=== PATIENT | female | born 1950 | race Caucasian/White ===

== ENCOUNTER 2019-02-12 20:54 | Inpatient (IN) | payer MEDICARE ==
[2019-02-12] MEDS ORDERED: Iohexol 350* (CONTRAST) 500 ML MDV IV ONE (21:36)
--- NOTE | 2019-02-12 22:28 | ED ---
Neurological HPI - HPI Summary HPI Summary: Patient is a 69 y/o F presenting to [facility] via EMS from [facility] for CLARK and impaired speech which the patient characterizes as difficulty finding words. She states that CLARK onset this morning, 02/12/19, when she returned home from walking her dog. Patient drank fluids and took ASA with no relief in Sx. CLARK progressively worsened. She subsequently had difficulty finding her words. Patient went to [facility] for stroke workup. She was noted to be hypertensive as well. Patient's case was discussed with Dr. Vernon who recommended transfer of patient to [facility] for MRI and CTA. Currently, CLARK is "just about gone" but some difficulty with word finding is still noted. Some nausea is endorsed, but she notes that she has not eaten since 1000, 02/12/19. Tingling /numbness/weakness, vomiting, diarrhea, fever, chest pain, abdominal pain, visual changes are denied. Patient reports some recent family stress. Patient is on metoprolol, lovastatin, and a third medication which she cannot recall at this time. She states that she has never smoked, drinks alcohol rarely, and denies substance usage. PSHx of hysterectomy is noted. FMHx of HTN, diabetes and cardiac disease is noted. Allergy to Flagyl and Penicillin is reported. Patient also claims that she had a reaction to contrast dye in 1991, claiming that she became hot, developed a rash, and felt near-syncopal when it was administered. - History of Current Complaint Chief Complaint: EDHypertension Stated Complaint: STROKE LIKE SYMPTOMS PER EMS Time Seen by Provider: 02/12/19 21:05 Hx Obtained From: Patient Onset/Duration: Started hours ago, Still Present Timing: Constant Current Severity: Mild Pain Intensity: 4 Pain Scale Used: 0-10 Numeric Character: Impaired Speech, Other: - CLARK Associated Signs and Symptoms: Positive: Headache, Impaired Speech - Allergy/Home Medications Allergies/Adverse Reactions: Allergies Allergy/AdvReac Type Severity Reaction Status Date / Time No Known Allergies Allergy Verified 02/13/19 00:15 Home Medications: Home Medications Lovastatin (NF) [Mevacor (NF)] 40 mg PO DAILY 02/12/19 [History Confirmed ] Metoprolol/HCTZ 50/25 (NF) [Metoprolol/Hydrochlorothi] 1 tab PO DAILY 02/12/19 [ History Confirmed 02/12/19] metFORMIN* [Glucophage 500 MG TAB *] 500 mg PO BID 02/12/19 [History Confirmed 02/12/19] PMH/Surg Hx/FS Hx/Imm Hx Endocrine/Hematology History: Denies: Hx Diabetes Cardiovascular History: Denies: Hx Pacemaker/ICD History: Denies: Hx Renal Disease Sensory History: Denies: Hx Hearing Aid Psychiatric History: Denies: Hx Panic Disorder - Surgical History Surgery Procedure, Year, and Place: HYSTERECTOMY; FACIAL & ARM FX REPAIR FROM 30 YRS AGO Infectious Disease History: No Infectious Disease History: Denies: Traveled Outside the [place] in Last 30 Days - Family History Known Family History: Positive: Cardiac Disease, Hypertension, Diabetes - Social History Alcohol Use: Rare Substance Use Type: Reports: None Smoking Status (MU): Never Smoked Tobacco Review of Systems - ROS Summary Review of Systems Summary: Home Medications Medication Instructions Recorded Confirmed Type Lovastatin (NF) [Mevacor (NF)] 40 mg PO DAILY 02/12/19 02/12/19 History Metoprolol/HCTZ 50/25 (NF) 1 tab PO DAILY 02/12/19 02/12/19 History [Metoprolol/Hydrochlorothi] metFORMIN* [Glucophage 500 MG TAB 500 mg PO BID 02/12/19 02/12/19 History *] Negative: Fever Eyes: Other - negative - visual changes Negative: Chest Pain Positive: Nausea. Negative: Abdominal Pain, Vomiting, Diarrhea Neurological: Other - positive - impaired speech Positive: Headache. Negative: Weakness, Paresthesia, Numbness All Other Systems Reviewed And Are Negative: Yes Physical Exam - Summary Physical Exam Summary: General: Well-developed, Well-nourished female. No acute distress. HEENT: Normocephalic, Atraumatic. Eyes: Conjuctiva normal, PERRL. Ears: TMs within normal limits. Nares: (-) discharge, (-) erythema. Oropharynx: Clear, mucous membranes moist, (-) exudates. Neck: Soft, FROM, (-) lymphadenopathy, (-) thyromegaly, (-) JVD. Cardiovascular: Normal sinus rhythm, (-) murmur. Lungs: Clear to auscultation bilaterally (-) wheezes, (-) rales, (-) rhonchi. Abdomen: Soft, non-tender, non-distended, (-) organomegaly, normal bowel sounds. Back: (-) CVA tenderness Extremities: No edema. Skin: Warm, dry, (-) rash. Neuro: Alert and oriented x3, no focal deficits. GCS 15. NIH 0. Psychiatric: Mood normal, affect normal. Triage Information Reviewed: Yes Vital Signs On Initial Exam: Initial Vitals Temp Pulse Resp BP Pulse Ox 98.7 F 78 16 215/108 95 02/12/19 20:55 02/12/19 20:55 02/12/19 20:55 02/12/19 20:55 02/12/19 20:55 Vital Signs Reviewed: Yes - [place] Coma Scale Best Eye Response: 4 - Spontaneous Best Motor Response: 6 - Obeys Commands Best Verbal Response: 5 - Oriented Coma Scale Total: 15 Procedures - Sedation Patient Received Moderate/Deep Sedation with Procedure: No Diagnostics - Vital Signs Vital Signs Temp Pulse Resp BP Pulse Ox 02/12/19 21:19 16 190/100 97 02/12/19 21:15 89 16 193/106 97 02/12/19 20:55 98.7 F 78 16 215/108 95 - Laboratory Lab Statement: Any lab studies that have been ordered have been reviewed, and results considered in the medical decision making process. - Radiology MRI BRAIN Radiology Interpretation Completed By: Radiologist Summary of Radiographic Findings: MRI BRAIN IMPRESSION: Area of restricted diffusion which shows increased signal on the flair weighted. sequences. This is in the region of the corpus callosum and cingulate gyrus. This could represent an ischemic lesion. However this is in an unusual. territory for ischemia and does raise the question of a demyelinating process. This is coupled to oval lesions which are oriented perpendicular to the. ependymal surface of the lateral ventricles. No lesions within the brainstem or. cerebellum. This raises the possibility of a demyelinating process. Cannot. exclude an ischemic process such as a microvascular leukoencephalopathy with a. subacute lacunar infarct. There is a broad differential for these white matter. lesions ranging from infectious lesions like Lyme's disease, inflammatory. processes such as sarcoid and vascular lesions like a vasculitis. This is only. a partial list. THIS REPORT WAS REVIEWED BY DR. LOWRY. - CT CTA HEAD/NECK CT Interpretation Completed By: Radiologist Summary of CT Findings: CTA HEAD IMPRESSION: Calcification of the delatorre of both carotid siphons. No aneurysm. The. intracranial circulation shows no stenosis. No aneurysm. No occlusion. THIS REPORT WAS REVIEWED BY DR. LOWRY. CTA NECK IMPRESSION: No acute findings. THIS REPORT WAS REVIEWED BY DR. LOWRY NIH Scale - NIH Scale Level of Consciousness: Alert/Keenly Responsive Ask Patient the Month and His/Her Age: Both Correct Ask Pt to Open/Close Eyes and Kitchen Cleaner/Release Non-Paretic Hand: Both Correctly Best Gaze (Only Horizontal Eye Movement): Normal Visual Field Testing: No Visual Loss Facial Paresis-Pt to Smile & Close Eyes or Grimace Symmetry: Normal/Symmetrical Motor Function - Right Arm: No Drift-Holds 10 Seconds Motor Function - Left Arm: No Drift-Holds 10 Seconds Motor Function - Right Leg: No Drift-Holds 10 Seconds Motor Function - Left Leg: No Drift-Holds 10 Seconds Limb Ataxia-Must be out of Proportion to Weakness Present: Absent Sensory (Use Pinprick to Test Arms/Legs/Trunk/Face): Normal Best Language (Describe Picture, Name Items): No Aphasia Dysarthria (Read Several Words): Normal Extinction and Inattention: No Abnormality Total Score: 0 Course/Dx - Course Course Of Treatment: 69 year old female sent here from [facility] with severe headache and difficulty finding works. possible tia vs complicated migraine. sent here for further imaging studies. no stroke findings noted on cta head/neck. Mri brain. patient referred to hospitalist for admission and neuro consult. patient discussed with Dr Quinteros. he accepted the patient in transfer for further testing. admit to medicine, neuro consult in am. During ED course, patient received solu-medrol 40 mg IV, trandate 20 mg IV, Benadryl 50 mg IV, and ASA 324 PO. - Diagnoses Provider Diagnoses: Headache, Hypertensive urgency - Physician Notifications Discussed Care Of Patient With: Merry Roach Time Discussed With Above Provider: 23:36 Instructed by Provider To: Other - Patient's case was discussed with Dr. Roach , Dr. Roach accepts for admission. Discharge ED - Sign-Out/Discharge Documenting (check all that apply): Patient Departure - admit All imaging exams completed and their final reports reviewed: Yes - Discharge Plan Condition: Stable Disposition: ADMITTED TO [facility] - Billing Disposition and Condition Condition: STABLE Disposition: Admitted to [facility] - Attestation Statements Document Initiated by Scribe: Yes Documenting Scribe: GERRY ARAUJO Provider For Whom Scribe is Documenting (Include Credential): SUSHILA LOWRY MD Scribe Attestation: I, GERRY ARAUJO, scribed for SUSHILA LOWRY MD on 02/13/19 at 0225. Scribe Documentation Reviewed: Yes Provider Attestation: The documentation as recorded by the scribeGERRY accurately reflects the service I personally performed and the decisions made by me, SUSHILA LOWRY MD Status of Scribe Document: Viewed
[2019-02-12] MEDS ORDERED: diPHENhydraMINE IV* 50 MG/ML 1 ml VIAL (BENADRYL) IV ONE (22:34)
[2019-02-12] MEDS ORDERED: methylPREDNISolone SOD 40 MG* 1 ML VIAL IV ONE (22:35)
[2019-02-12] MEDS ORDERED: Labetalol IV* 5 MG/ML 20 ML VIAL IV PUSH ONE (22:36)
[2019-02-12] MEDS ORDERED: Aspirin 81 mg CHEW TAB* 81 MG TAB.CHEW PO ONE (23:17)
[2019-02-13] MEDS ORDERED: niCARdipine 0.1MG/ML IVPREMIX* 20 MG/200 ML BAG IV SCH ×2 (01:00)
[2019-02-13 05:03] LABS: Hematocrit 40 % (35-47); Hemoglobin 14.2 g/dL (12.0-16.0); Mean Corpuscular HGB Conc 36 g/dL (31-36); Mean Corpuscular Hemoglobin 31 pg (27-31); Mean Corpuscular Volume 86 fL (80-97); Mean Platelet Volume 8.3 fL (7.4-10.4); Platelet Count 212 10^3/uL (150-450); Red Blood Count 4.62 10^6 /uL (3.70-4.87); Red Cell Distribution Width 13 % (10-15); White Blood Count 8.7 10^3/uL (3.5-10.8)
[2019-02-13 05:17] LABS: Albumin 4.1 g/dL (3.2-5.2); Calcium 9.2 mg/dL (8.6-10.3); Magnesium 1.9 mg/dL (1.9-2.7); Potassium 3.6 mmol/L (3.5-5.0); Total Bilirubin 0.5 mg/dL (0.2-1.0)
[2019-02-13 05:21] LABS: Troponin I 0.01 ng/mL (<0.03)
[2019-02-13 05:23] LABS: Albumin/Globulin Ratio 1.4 (1-3); BUN/Creatinine Ratio 13.6 (8-20); EGFR African American 107.8 (>60); EGFR Non-African American 89.1 (>60); Total Protein 7.1 g/dL (6.4-8.9)
[2019-02-13] MEDS: Heparin VIAL(*) 5000 UNITS/ML VIAL (FIVE THOUSAND) SUBCUT SCH ×3 (05:39→21:36)
--- NOTE | 2019-02-13 07:50 | HP ---
History of Present Illness - History of Present Illness Reason for Visit: headache, aphasia History of Present Illness: 69 yo female with hx of HTN was brought in as a transfer from outside facility. She originally presented with BP 240s, severe CLARK and aphasia. Pt transferred here for MRI and CTA. MRI shows a demyelinating process. CTA was neg for stroke. Her neurological symptoms improved and her CLARK resolved. Her systolic is still in the 190s-200s. She has hx of HTN, did not take her meds today. She had an argument with her family this morning and feels overwhelmed. In the ED, she received a dose of steroids. - Past Medical History Cardiac: HTN, Hyperlipidemia Review of Systems - Measurements Intake and Output: Intake and Output Last 24 Hours 02/11/19 02/12/19 02/13/19 02/14/19 06:59 06:59 06:59 06:59 Intake Total 60 Balance 60 Weight 174 lb 9.698 oz Intake: Medicated IV 60 Cardene 60 Other: Estimated Void Large - Review of Systems Constitutional Symptoms: Negative: Weight Gain, Weight Loss, Weakness, Fatigue, Fever, Night Sweats, Unexplained Falls, Other Dermatology: Negative: Normal, Rash, Skin Lesions, Cancer, Skin Lumps, Other HEENT: Negative: Normal, Change in Hearing, Vertigo, Dental Problems, Tinnitus, Sinus Problem, Other Eyes: Negative: Normal, Change in Vision, Double Vision, Eye Pain, Glaucoma, Cataract, Contacts or Glasses, Other Thyroid: Negative: Normal, Goiter, Thyroid Nodule, Cold Intolerance, Heat Intolerance , Sweatiness, Tremor, Frequent Defecation, Constipation, Palpitations, Primary Hypothyroidism, Primary Hyperthyroidism, Weight Loss, Weight Gain, Change in Skin/Hair, Change in Menstruation, Radiation Exposure, Other Pulmonary: Negative: Normal, Cough, Sputum, Hemoptysis, Wheezing, Respiratory Distress, Shortness of Breath, COPD, Asthma, Exercise Intolerance, Home Oxygen, Other Cardiology: Negative: Normal, Chest Pain, Shortness of Breath, Palpitations, Swelling of Ankles, Peripheral Vascular Dis, Edema, Faintness, Syncope, Claudication, Proximal NocturnalDyspnea, Orthopnoea, Other Gastroenterology: Negative: Normal, Abdominal Pain, Nausea, Vomiting, Anorexia, Indigestion, Difficulty Swallowing, Heartburn, Constipation, Diarrhea, Blood in Stools, Change in Bowel Habits, Haematemesis, Melena, Other Endocrinology: Negative: Normal, Thyroid Problems, Adrenal Problems, Gonadal Problems, Family Hx Endocrine Disorders, Obesity, Diabetes Mellitus, Hyperglycemia, Hx Hypoglycemia, Diabetic Foot Ulcers, Calluses, Hirsutism, Menstrual Abnormalities , Polydipsia, Polyuria, Gonadal Problems, Gynecomastia, Pituitary disease, Other Hematologic/Lymphatic: Negative: Anemia, Easy Bruising, Hx Leukemia, Hx Lymphoma, Use of Anticoagulant, Use of Antiplatelet Drugs, Other Neurology: Positive: Normal, Headache Negative: Migraines, Change in Vision, Diplopia, Dizziness, Change in Balancing, Change in Coordination, Change in Memory, Change in Speech, Change in Sphincter Function, Change in Walking, Numbness\Paresthesiae, Unexplained Weakness, Hx of Stroke\TIA, Hx of Seizures, Other Psychiatry: Positive: Normal, Anxiety, Unusual Anxiety Negative: Depression, Depressed Mood, Anhedonia, Sexual Dysfunction, Weight Change, Guilt Feelings, Tearfulness, Unusual Fatigue, Suicidal Ideation, Hypomania, Eating Disorders, Other Objective Active Medications: Heparin Sodium (Porcine) (Heparin Vial(*)) 5,000 units SUBCUT Q8HR [facility] Last Admin: 02/13/19 05:39 Dose: 5,000 units Hydrochlorothiazide (Hydrodiuril Tab*) 25 mg PO DAILY [facility] Nicardipine/Sodium Chloride (Cardene 0.1mg/Ml Ivpremix*) 20 mg in 200 mls @ 0 mls/hr IV .INITIAL RATE [facility]; Protocol Last Admin: 02/13/19 01:03 Dose: 50 mls/hr Influenza Virus Vaccine (Fluarix Quad 4063-2189 Syr) 0.5 ml IM .ONCE ONE Stop: 02/13/19 09:01 Metoprolol Succinate (Toprol Xl Tab*) 1 mg PO DAILY [facility] Vital Signs - 8 hr 02/13/19 02/13/19 02/13/19 00:09 00:14 00:45 Temperature 98.7 F Pulse Rate 81 81 81 Respiratory 16 22 20 Rate Blood Pressure 161/86 172/96 188/97 (mmHg) O2 Sat by Pulse 94 94 96 Oximetry 02/13/19 02/13/19 02/13/19 00:58 01:00 01:15 Temperature 98.4 F Pulse Rate 81 84 85 Respiratory 20 22 Rate Blood Pressure 188/97 176/99 158/76 (mmHg) O2 Sat by Pulse 95 97 94 Oximetry 02/13/19 02/13/19 02/13/19 01:30 01:45 02:00 Temperature Pulse Rate 82 83 84 Respiratory 28 26 25 Rate Blood Pressure 147/75 147/74 145/77 (mmHg) O2 Sat by Pulse 95 95 94 Oximetry 02/13/19 02/13/19 02/13/19 02:15 02:30 02:45 Temperature Pulse Rate 85 82 81 Respiratory 18 21 23 Rate Blood Pressure 154/78 135/63 139/71 (mmHg) O2 Sat by Pulse 94 94 93 Oximetry 02/13/19 02/13/19 02/13/19 02:58 03:00 03:15 Temperature Pulse Rate 80 81 Respiratory 20 19 20 Rate Blood Pressure 133/67 150/72 (mmHg) O2 Sat by Pulse 96 97 Oximetry 02/13/19 02/13/19 02/13/19 03:30 03:45 04:00 Temperature 99.9 F Pulse Rate 77 82 78 Respiratory 16 22 24 Rate Blood Pressure 149/72 152/79 158/73 (mmHg) O2 Sat by Pulse 95 98 92 Oximetry 02/13/19 02/13/19 02/13/19 04:15 04:30 05:00 Temperature Pulse Rate 78 78 75 Respiratory 23 21 16 Rate Blood Pressure 140/72 152/75 (mmHg) O2 Sat by Pulse 92 94 95 Oximetry 02/13/19 02/13/19 02/13/19 05:30 05:45 06:00 Temperature Pulse Rate 76 75 74 Respiratory 17 21 31 Rate Blood Pressure 172/90 157/85 167/79 (mmHg) O2 Sat by Pulse 96 93 96 Oximetry 02/13/19 06:15 Temperature Pulse Rate 73 Respiratory 20 Rate Blood Pressure 150/75 (mmHg) O2 Sat by Pulse 94 Oximetry Oxygen Devices in Use Now: None Appearance: NID, trying to rest Ears/Nose/Mouth/Throat: NL Teeth, Lips, Gums, Mucous Membranes Moist Neck: NL Appearance and Movements; NL JVP, Trachea Midline Respiratory: Symmetrical Chest Expansion and Respiratory Effort, Clear to Auscultation, Clear to Percussion Cardiovascular: NL Sounds; No Murmurs; No JVD, No Edema Abdominal: NL Sounds; No Tenderness; No Distention Lymphatic: No Cervical Adenopathy Skin: No Rash or Ulcers, No Nodules or Sclerosis Neurological: Alert and Oriented x 3, - - neurologically intact. Aphasia resolved Result Diagrams: 02/13/19 04:47 02/13/19 04:47 Microbiology and Other Data: Microbiology 02/13/19 01:00 Nasal Screen MRSA (PCR) - Final Nasal Mrsa Not Detected Assess/Plan/Problems-Billing Assessment: - Patient Problems (1) Hypertensive emergency Current Visit: Yes Status: Acute Code(s): I16.1 - HYPERTENSIVE EMERGENCY SNOMED Code(s): 817400937664118 Comment: very high pressure with neurological symptoms .CTA neg MRI showing restricted diffusion the flair sequences. Radiology comments the differential for this is broad. Im not sure if this finding is incidental Nicardipine drip, resume home meds BP goal 160s-170s for the next 24 hours (2) DVT prophylaxis Current Visit: Yes Status: Acute Code(s): Z29.9 - ENCOUNTER FOR PROPHYLACTIC MEASURES, UNSPECIFIED SNOMED Code(s): 697468205 Comment: heparin sc (3) Full code status Current Visit: Yes Status: Acute Code(s): Z78.9 - OTHER SPECIFIED HEALTH STATUS SNOMED Code(s): 944303285 (4) HLD (hyperlipidemia) Current Visit: Yes Status: Acute Code(s): E78.5 - HYPERLIPIDEMIA, UNSPECIFIED SNOMED Code(s): 73763797 Comment: resume home med
[2019-02-13] MEDS ORDERED: Metoprolol Succinate XL TAB* 50 MG PO SCH (09:00)
[2019-02-13] MEDS ORDERED: Influenza VAC *QUAD* 2019-20* 0.5 ML SYRINGE IM ONE (09:00)
[2019-02-13] MEDS ORDERED: Dextrose 50% VIAL 50 ml IV PUSH PRN (09:14)
[2019-02-13] MEDS: Hydrochlorothiazide TAB* 25 MG PO SCH (10:00)
[2019-02-13] MEDS: Metoprolol Succinate XL TAB* 50 MG PO SCH (10:00)
--- NOTE | 2019-02-13 11:13 | PN ---
Subjective Date of Service: 02/13/19 Interval History: Patient seen this morning, feels better, her neurological symptoms has completed resolved. Off the nicardipine drip. Denies any headache. No fever or chills. BP this morning . Off the nicardipine drip and ordered her HCTZ and metoprolol XL. Will monitor off the drip and if need be will start another agent meanwhile will start prn hydralazine for SBP above 180 or DBP above 100 Past Medical History: Unchanged from Admission Objective Active Medications: Aspirin (Aspirin Ec Tab*) 81 mg PO DAILY [facility] Clopidogrel Bisulfate (Plavix Tab*) 75 mg PO DAILY [facility] Dextrose (Dextrose 50% Vial 50 Ml*) 25 ml IV PUSH .FOR FS < 60 - SS PRN PRN Reason: FS < 60 Heparin Sodium (Porcine) (Heparin Vial(*)) 5,000 units SUBCUT Q8HR [facility] Last Admin: 02/13/19 05:39 Dose: 5,000 units Hydrochlorothiazide (Hydrodiuril Tab*) 25 mg PO DAILY [facility] Last Admin: 02/13/19 10:00 Dose: 25 mg Nicardipine/Sodium Chloride (Cardene 0.1mg/Ml Ivpremix*) 20 mg in 200 mls @ 0 mls/hr IV .INITIAL RATE [facility]; Protocol Last Admin: 02/13/19 01:03 Dose: 50 mls/hr Insulin Human Lispro (Humalog*) 0 units SUBCUT FS ACHS ICU [facility]; Protocol Metoprolol Succinate (Toprol Xl Tab*) 50 mg PO DAILY [facility] Last Admin: 02/13/19 10:00 Dose: 50 mg Vital Signs - 8 hr 02/13/19 02/13/19 02/13/19 03:15 03:30 03:45 Temperature Pulse Rate 81 77 82 Respiratory 20 16 22 Rate Blood Pressure 150/72 149/72 152/79 (mmHg) O2 Sat by Pulse 97 95 98 Oximetry 02/13/19 02/13/19 02/13/19 04:00 04:15 04:30 Temperature 99.9 F Pulse Rate 78 78 78 Respiratory 24 23 21 Rate Blood Pressure 158/73 140/72 152/75 (mmHg) O2 Sat by Pulse 92 92 94 Oximetry 02/13/19 02/13/19 02/13/19 05:00 05:30 05:45 Temperature Pulse Rate 75 76 75 Respiratory 16 17 21 Rate Blood Pressure 172/90 157/85 (mmHg) O2 Sat by Pulse 95 96 93 Oximetry 02/13/19 02/13/19 02/13/19 06:00 06:15 06:30 Temperature Pulse Rate 74 73 72 Respiratory 31 20 20 Rate Blood Pressure 167/79 150/75 164/81 (mmHg) O2 Sat by Pulse 96 94 94 Oximetry 02/13/19 02/13/19 02/13/19 06:45 07:00 07:15 Temperature Pulse Rate 75 72 71 Respiratory 22 18 28 Rate Blood Pressure 155/85 163/79 152/76 (mmHg) O2 Sat by Pulse 92 95 93 Oximetry 02/13/19 02/13/19 02/13/19 07:30 07:45 08:00 Temperature Pulse Rate 72 72 Respiratory 18 16 13 Rate Blood Pressure 141/71 160/85 156/79 (mmHg) O2 Sat by Pulse 94 95 Oximetry 02/13/19 02/13/19 08:15 08:30 Temperature Pulse Rate 70 70 Respiratory 19 17 Rate Blood Pressure 154/80 160/79 (mmHg) O2 Sat by Pulse 95 95 Oximetry Oxygen Devices in Use Now: None Appearance: awake, alert. no distress. no fever or chills Eyes: No Scleral Icterus, - - EOMI Ears/Nose/Mouth/Throat: NL Teeth, Lips, Gums, Mucous Membranes Moist Neck: NL Appearance and Movements; NL JVP, Trachea Midline Respiratory: Symmetrical Chest Expansion and Respiratory Effort, Clear to Auscultation Cardiovascular: NL Sounds; No Murmurs; No JVD, RRR, No Edema Abdominal: NL Sounds; No Tenderness; No Distention Skin: No Rash or Ulcers Neurological: Alert and Oriented x 3, NL Muscle Strength and Tone Result Diagrams: 02/13/19 04:47 02/13/19 04:47 Microbiology and Other Data: Microbiology 02/13/19 01:00 Nasal Screen MRSA (PCR) - Final Nasal Mrsa Not Detected Assess/Plan/Problems-Billing Assessment: 69 y/o female admitted for hypertensive urgency admitted to ICU for nicardipine drip. tolerating po well and neuro symptoms resolved. Neuro consult called. - Patient Problems (1) Hypertensive emergency Current Visit: Yes Status: Acute Code(s): I16.1 - HYPERTENSIVE EMERGENCY SNOMED Code(s): 747638990317989 Comment: - BP improved this morning. Off the nicardipine drip - Resume her home BP meds Hydrochlorothiazide 25 mg daily, metoprolol-XL 50 mg daily - I added prn hydralazine for SBP above 180. - Added Norvasc 5 mg daily (hold for SBP below 120) - MRI brain suggested ischemic disease versus demyelinating disease. Neuro consult was obtained in the ED. Awaiting Dr. Quinteros input. - She remains on aspirin and plavix. Will follow up neurology input. Will Add TSH, hgbA1c, Lipid pannel, B12. (2) HLD (hyperlipidemia) Current Visit: Yes Status: Acute Code(s): E78.5 - HYPERLIPIDEMIA, UNSPECIFIED SNOMED Code(s): 74032938 Comment: - check lipid pannel - resume lovastatin (3) Diabetes Current Visit: Yes Status: Acute Code(s): E11.9 - TYPE 2 DIABETES MELLITUS WITHOUT COMPLICATIONS SNOMED Code(s): 71377110 Comment: - Start sliding scale. check A1c. Diabetic diet (4) DVT prophylaxis Current Visit: Yes Status: Acute Code(s): Z29.9 - ENCOUNTER FOR PROPHYLACTIC MEASURES, UNSPECIFIED SNOMED Code(s): 072369908 Comment: heparin sc
[2019-02-13] MEDS: Aspirin EC TAB* 81 MG TAB.EC PO SCH (12:20)
[2019-02-13] MEDS: hydrALAZINE IV* 20 MG/ML VIAL IV SLOW PU SCH ×4 (12:20→18:46)
[2019-02-13] MEDS: Clopidogrel TAB* 75 MG PO SCH (12:20)
--- NOTE | 2019-02-13 13:58 | CONS ---
CC: Dr. Thien Gallagher; Dr. Papo Quinteros CONSULTATION REPORT: DATE OF CONSULT: 02/13/19 PRIMARY CARE PROVIDER: Dr. Thien Gallagher. REASON FOR CONSULTATION: Slurred speech, difficulty thinking, headache. HISTORY OF PRESENT ILLNESS: Ms. Medrano is a 69-year-old female who was transferred from [facility] last night. I received a call last night at around 6:30 in the evening from [facility] stating that they had Ms. Medrano in the ER, she came in with some speech difficulties, CT of the head did not show any major issues, the provider in the ER noted an NIH stroke scale of 2 but pan bsequently resolved and her symptoms improved with better blood pressure management. Apparently when she came in, she had blood pressure systolics in the 240s. She was complaining of a headache above the left eye. She was also complaining of some neck pain but no photophobia or phonophobia, some kimberly sea associated with the headache. She does not normally get headaches. She rated the headache at 12 /10 per the ER provider. At that time, [facility] was unable to perform an MRI or CT angiogram. She w as at least 6-1/2 hours outside of the initial presentation of symptoms, so she was not a TPA cecil te but there was at least a possibility that she could be a clot retrieval candidate, although given her symptoms it was less likely. It was felt that she would be better treated either transferring to tertiary care center or barring that transferring here for further workup. The patient refused to g o to a tertiary care stroke center and we accepted the patient for further evaluation. When she arri dejon in the ER, her headache had largely resolved. She was still feeling "fussy" in her head, but her thinking had improved and her speech had improved as well. She noted that at about 2 o'clock that d ay, she was having some difficulty thinking. She also noted difficulty getting words at one point wh en her was trying to take her to the ER, he was about to run into a ditch and she could not f ind the word ditch, although she was aware of what was going on, she was able to comprehend, she just could not get the words out. She denied any focal numbness, tingling, or weakness. There was no rep orted facial droop. She had no vision loss. When she arrived in the ER, as I said, they treated her blood pressure and her headache was improving. When she arrived here, her headache had improved dram atically. She had an MRI of the brain that showed some interesting findings including significant sc attered white matter disease as well as an oval lesion on the left side of the corpus callosum with s ome increased DWI signal and FLAIR signal. There is a subtle hypoattenuation on the ADC map, but it suggests that this was more likely a subacute lacunar infarct. It does not appear to be an acute inf arct and likely not contributing to her symptoms. She does have some lesions that are perpendicular to the lateral ventricles with an unusual presentation. She has no prior history of cancer or infect ions. No prior history of rheumatologic disorders that she is aware of. She does note significant h igh blood pressure and apparently she has had it for years, but it was only diagnosed about 8 years a go. She tells me that she probably had it when she was a child. She has otherwise been in her usual state of health. She has had no fevers or chills. No recent illnesses. No falls or head trauma. She denies any similar symptoms in the past. She has had no chest pain or shortness of breath. She has had no unsteadiness of her gait. No recent dysuria, frequency, urgency, constipation, or other s ymptoms. This morning in the ICU, her blood pressures are improved, [facility] and her [facility] pressures have stabilized. She is now on oral medication. With some continued hig h blood pressure but much improved, she has no headache this morning, she states that she feels much more clear. She has been up walking to the bedside commode without feeling dizzy or unstable, and aubrey martin notes no speech difficulties at this time. PAST MEDICAL HISTORY: Includes high blood pressure and diabetes, on medication. She states that she thinks she has cholesterol issues as well. She denies a history of prior heart attack or strokes. S he tells us that she does take aspirin at home. PAST SURGICAL HISTORY: Noncontributory. MEDICATIONS: At home include: 1. Metformin 1000 mg p.o. b.i.d. 2. Metoprolol/hydrochlorothiazide 50/25 one tablet daily. 3. Lovastatin 40 mg daily. She did note that she missed her dose of high blood pressure medicine yesterday. ALLERGIES: She has no known drug allergies. FAMILY HISTORY: Significant for multiple relatives with strokes and heart attacks including her pare nts, none at an early age, she is aware of. SOCIAL HISTORY: She is a retired bankruptcy legal assistant. She has recently been . She denies any tobacc o use. Only rare alcohol use. No drug use. She lives with her . REVIEW OF SYSTEMS: A 14-organ systems is as noted above, otherwise negative. PHYSICAL EXAM: Vital Signs: Current blood pressure 160/79, heart rate in the 70s, respiratory rate 17, O2 sat 95% on room air. In general, she is a well-nourished, well-developed female, pleasant, si tting up in her bed. She did not eat breakfast. Well-dressed, well-groomed. HEENT: She is normocep halic, atraumatic. Sclerae are anicteric. Mucous membranes are moist. Oropharynx is clear. Nares are patent. Neck is supple. No thyromegaly. No carotid bruit. No meningismus. Chest: Clear to au scultation bilaterally. Cardiovascular: Regular rate and rhythm. Abdomen is nontender and nondiste nded. Extremities: No clubbing, cyanosis, or edema. Her skin is warm and dry. On neurologic exam, she is awake, alert, and oriented x3. Her speech is fluent. There is no dysarthria. Repetition is intact. Recall of recent and remote events is intact. Vocabulary is intact. Her mood is dysthymic. Affect and mood congruent. Cranial Nerves: Pupils are equal, round, and reactive to light and acco mmodation. Extraocular muscles are intact. There is no nystagmus appreciated. There is no diplopia appreciated. Visual chan are full to confrontation. Her face is symmetric. Facial sensation is intact bilaterally. Hearing is intact bilaterally. Palate raises symmetrically. Tongue is midline. Motor Exam: She spontaneously moves all extremities antigravity. Good tone and bulk. She is 5/5 th roughout with no drift in the upper or lower extremities. There is no tremor at rest or with finger-t o-nose. She has no ataxia. No problems with wzwqov-vp-ealo or abvh-db-cjof. There is no cogwheelin g present on her examination. Sensation is intact to light touch and pinprick in the upper and lower extremities with no focal deficits. DTRs are 1+ and symmetric at the biceps, triceps, brachioradial is, 1+ at the patella, absent at the ankles, equivocal Babinski's. Gait was not tested, but she has been walking around this morning unassisted to the commode. DIAGNOSTIC STUDIES/LAB DATA: Lab work includes CBC, it was normal. A complete metabolic profile wit h a glucose of 150, otherwise normal. She had a CT angiogram done here that showed no acute findings . She had a calcification of the delatorre of both carotid siphons. No aneurysms. The intracranial cir culation showed no stenosis, no aneurysms, and no occlusion. MRI of the brain was reviewed and as no talya above. The outside facility did a CT of the head, it was reported to me that her CT scan showed no acute changes, although I do not have the films available. Review of the report from the outside E R records shows an impression of no acute intracranial abnormality. No sinusitis, mastoiditis, or sk ull fracture. Echocardiogram is pending, has been ordered. ASSESSMENT AND PLAN: Ms. Medrano is a 69-year-old female who presents to the hospital with what so unds like hypertensive emergency with a significantly elevated blood pressure. She does have a histo ry of stroke risk factors including hypertension, diabetes, and likely hypercholesterolemia. Her MRI showed an interesting finding with some white matter changes what appears to be a possible subacute infarct near the left lateral ventricle, although there is no major ADC map changes and she has multi ple lesions including the suspected lesion that are hyperintense on T2/FLAIR images concerning for an underlying demyelinating process. I did review the films and while she does have some perpendicular lesions, I suspect that these are related to chronic, long-standing high blood pressure and not demye linating process. She has no history of significant symptoms that would suggest multiple sclerosis. She has no history of recent infections. No history of Lyme disease. No history of rheumatologic d isorders. My suspicion for something like vasculitis is very low, although I am going to check some basic lab work including vasculitic labs, inflammatory labs. We will check a Lyme panel as well as h er other stroke labs. At this point, the plan is to get an echocardiogram of her heart to round out her stroke workup. I defer to Medicine team regarding continued management of her blood pressure iss ues with slow reduction and transition to oral medications, strive for tight blood pressure control l magda-term and strive for tight blood sugar control both during the hospitalization and long- term. Aubrey martin is a nonsmoker. I will check a lipid panel today and we will likely add a statin. I have started her. She does take a baby aspirin at home but I am going to start her back on her baby aspirin and a dd Plavix for 30 days. She will need dual antiplatelet therapy for 30 days, at which point she can g o back to aspirin alone. I told her to monitor her blood pressures carefully at home, long-term, she will need good control, we will watch her closely on telemetry for any evidence of atrial fibrillati on, although my suspicion is low and she will notify the nurse immediately should she have any new st roke-like symptoms. Currently, she is improving. I will continue to follow along and make further r ecommendations as necessary. Thank you for the opportunity to participate in the care of this very interesting patient. [id number]/[facility] #: [id number]
[2019-02-13] MEDS ORDERED: amLODIPine TAB* 5 MG PO SCH (14:00)
[2019-02-13 14:06] LABS: TSH (Thyroid Stimulating Horm) 1.17 mcIU/mL (0.34-5.60)
[2019-02-13 14:08] LABS: Free T4 0.82 ng/dL (0.61-1.12)
[2019-02-13 14:13] LABS: C Reactive Protein 8.88 mg/L (<8.01); HDL Cholesterol 42.4 mg/dL
[2019-02-13 14:17] LABS: Folate 16.69 ng/mL (>3.99)
[2019-02-13] MEDS: Insulin LISPRO* 1 UNITS UNIT SUBCUT SCH ×3 (14:47→21:35)
[2019-02-13] MEDS ORDERED: Atorvastatin* 10 MG TAB PO SCH (21:00)
[2019-02-13] MEDS ORDERED: Atorvastatin* 20 MG TAB PO SCH (21:00)
[2019-02-13] MEDS ORDERED: hydrALAZINE IV* 20 MG/ML VIAL IV SLOW PU PRN (22:00)
[2019-02-14] MEDS: Heparin VIAL(*) 5000 UNITS/ML VIAL (FIVE THOUSAND) SUBCUT SCH ×2 (05:52→14:11)
[2019-02-14] MEDS: Insulin LISPRO* 1 UNITS UNIT SUBCUT SCH ×2 (07:56→12:25)
[2019-02-14] MEDS: Clopidogrel TAB* 75 MG PO SCH (07:57)
[2019-02-14] MEDS: Metoprolol Succinate XL TAB* 50 MG PO SCH (07:57)
[2019-02-14] MEDS: Hydrochlorothiazide TAB* 25 MG PO SCH (07:57)
[2019-02-14] MEDS: Aspirin EC TAB* 81 MG TAB.EC PO SCH (07:57)
[2019-02-14] MEDS ORDERED: amLODIPine TAB* 5 MG PO SCH (10:00)
--- NOTE | 2019-02-14 11:05 | PN ---
Subjective Date of Service: 02/14/19 Length of Stay: 1 Days Interval History: No new issues overnight. She feels back to baseline. She has been walking around, ambulating without difficulty. Speech and thought process are back to normal. She is anxious to go home. Tele: No events overnight Past Medical History: Unchanged from Admission Objective Active Medications: Amlodipine Besylate (Norvasc Tab*) 10 mg PO 1000 KAN Aspirin (Aspirin Ec Tab*) 81 mg PO DAILY [facility] Last Admin: 02/14/19 07:57 Dose: 81 mg Atorvastatin Calcium (Lipitor*) 20 mg PO BEDTIME [facility]; Protocol Last Admin: 02/13/19 21:38 Dose: 20 mg Clopidogrel Bisulfate (Plavix Tab*) 75 mg PO DAILY [facility] Last Admin: 02/14/19 07:57 Dose: 75 mg Dextrose (Dextrose 50% Vial 50 Ml*) 25 ml IV PUSH .FOR FS < 60 - SS PRN PRN Reason: FS < 60 Heparin Sodium (Porcine) (Heparin Vial(*)) 5,000 units SUBCUT Q8HR [facility] Last Admin: 02/14/19 05:52 Dose: 5,000 units Hydralazine HCl (Apresoline Iv*) 10 mg IV SLOW PU Q4H PRN PRN Reason: SBP >180 OR DBP >100 Last Admin: 02/14/19 03:59 Dose: 10 mg Hydrochlorothiazide (Hydrodiuril Tab*) 25 mg PO DAILY [facility] Last Admin: 02/14/19 07:57 Dose: 25 mg Insulin Human Lispro (Humalog*) 0 units SUBCUT FS ACHS ICU [facility]; Protocol Last Admin: 02/14/19 07:56 Dose: 1 units Metoprolol Succinate (Toprol Xl Tab*) 50 mg PO DAILY [facility] Last Admin: 02/14/19 07:57 Dose: 50 mg Vital Signs 02/13/19 02/13/19 02/13/19 11:01 11:16 11:30 Temperature Pulse Rate 74 75 72 Respiratory 13 23 21 Rate Blood Pressure 142/81 158/71 153/78 (mmHg) O2 Sat by Pulse 94 93 95 Oximetry 02/13/19 02/13/19 02/13/19 11:45 11:46 12:00 Temperature 99.5 F Pulse Rate 71 71 Respiratory 13 20 Rate Blood Pressure 135/81 151/78 (mmHg) O2 Sat by Pulse 96 95 Oximetry 02/13/19 02/13/19 02/13/19 12:15 12:28 12:30 Temperature Pulse Rate 71 74 71 Respiratory 20 21 20 Rate Blood Pressure 151/78 157/72 145/76 (mmHg) O2 Sat by Pulse 95 95 95 Oximetry 02/13/19 02/13/19 02/13/19 12:47 13:00 13:01 Temperature Pulse Rate 76 77 80 Respiratory 23 17 22 Rate Blood Pressure 164/47 164/74 (mmHg) O2 Sat by Pulse 96 96 97 Oximetry 02/13/19 02/13/19 02/13/19 13:16 13:30 13:45 Temperature Pulse Rate 81 77 77 Respiratory 14 19 21 Rate Blood Pressure 130/82 152/74 154/67 (mmHg) O2 Sat by Pulse 96 95 95 Oximetry 02/13/19 02/13/19 02/13/19 14:00 14:49 15:00 Temperature Pulse Rate 78 77 74 Respiratory 23 17 18 Rate Blood Pressure 163/79 128/77 (mmHg) O2 Sat by Pulse 96 97 97 Oximetry 02/13/19 02/13/19 02/13/19 15:15 15:30 15:45 Temperature Pulse Rate 72 71 70 Respiratory 18 21 21 Rate Blood Pressure 143/63 144/63 145/93 (mmHg) O2 Sat by Pulse 96 96 96 Oximetry 02/13/19 02/13/19 02/13/19 16:00 16:26 16:27 Temperature 99.0 F Pulse Rate 74 71 70 Respiratory 10 18 23 Rate Blood Pressure 158/72 171/93 171/83 (mmHg) O2 Sat by Pulse 97 97 97 Oximetry 02/13/19 02/13/19 02/13/19 16:31 16:45 17:00 Temperature Pulse Rate 72 76 77 Respiratory 18 17 18 Rate Blood Pressure 162/84 147/73 155/71 (mmHg) O2 Sat by Pulse 97 97 96 Oximetry 02/13/19 02/13/19 02/13/19 17:15 17:30 17:45 Temperature Pulse Rate 77 77 85 Respiratory 19 10 18 Rate Blood Pressure 151/76 155/78 149/103 (mmHg) O2 Sat by Pulse 96 97 96 Oximetry 02/13/19 02/13/19 02/13/19 18:00 18:30 19:45 Temperature 98.1 F 98.6 F Pulse Rate 76 81 85 Respiratory 19 18 20 Rate Blood Pressure 162/80 147/76 156/68 (mmHg) O2 Sat by Pulse 96 96 99 Oximetry 02/13/19 02/13/19 02/14/19 20:00 23:30 03:41 Temperature 98.2 F 98.2 F Pulse Rate 77 82 Respiratory 18 16 16 Rate Blood Pressure 148/63 173/80 (mmHg) O2 Sat by Pulse 97 96 Oximetry 02/14/19 02/14/19 02/14/19 03:58 04:20 07:17 Temperature 98.3 F Pulse Rate 87 84 Respiratory 16 Rate Blood Pressure 184/80 148/66 157/72 (mmHg) O2 Sat by Pulse 97 Oximetry Intake and Output Last 24 Hours 02/12/19 02/13/19 02/14/19 02/15/19 06:59 06:59 06:59 06:59 Intake Total 60 995 240 Output Total 0 Balance 60 995 240 Weight 174 lb 9.698 oz Intake: Medicated IV 60 Cardene 60 Oral 995 240 Output: Urine 0 Other: Estimated Void Large Small # Voids 1 Oxygen Devices in Use Now: None Neurology Exam: General: Well nourished, well developed, and in no acute distress HEENT: Normocephalic/atraumatic, sclera anicteric, mucous membranes moist Neck: Supple Chest: Clear to auscultation bilaterally Cardiovascular: Regular rate and rhythm without murmurs, rubs, gallops Abdomen: Soft, non-tender/non-distended Extremities: No clubbing, cyanosis, or edema Neurological Findings: Awake, alert, and oriented to person, place, and time. Speech: fluent without dysarthria, repetition intact Cranial Nerve: PERRL, EOM intact, VFF, no nystagmus, face symmetric bilaterally , facial sensation intact, hearing intact to finger rub bilaterally, palate elevates symmetrically, tongue midline Motor: 5/5 throughout, proximal and distal extremities x4 tone/bulk normal. no drift Sensation: intact to LT/PP bilaterally upper and lower extremities Deep Tendon Reflex: 1+ symmetric in the upper/lower extremities, Babinski - down going Finger to nose, rapid alternating movements intact without tremor, no dysdiadochokinesia Result Diagrams: 02/13/19 04:47 02/13/19 04:47 Microbiology and Other Data: Microbiology 02/13/19 01:00 Nasal Screen MRSA (PCR) - Final Nasal Mrsa Not Detected Assessment/Plan Ms. Medrano is a 69-year-old female who presents to the hospital with what sounds like hypertensive emergency with a significantly elevated blood pressure. She does have a history of stroke risk factors including hypertension , diabetes, and likely hypercholesterolemia. Her MRI showed an interesting finding with some white matter changes what appears to be a possible subacute infarct near the left lateral ventricle, although there is no major ADC map changes and she has multiple lesions including the suspected lesion that are hyperintense on T2/FLAIR images concerning for an underlying demyelinating process. I did review the films and while she does have some perpendicular lesions, I suspect that these are related to chronic, long-standing high blood pressure and not demyelinating process. She has no history of significant symptoms that would suggest multiple sclerosis. She has no history of recent infections. No history of Lyme disease. No history of rheumatologic disorders. My suspicion for something like vasculitis is very low, although I am going to check some basic lab work including vasculitic labs, inflammatory labs. We will check a Lyme panel as well as her other stroke labs. 1. Echocardiogram pending: If negative, I am ok for discharge this afternoon. Suspicion for A.fib is low 2. Continue DAPT (ASA/Plavix) X 30 days and then stop Plavix and continue ASA 81 mg q day 3. Tight BP control 4. Tight DM control 5. Statin for HLP: Goal LDL < 70 6. Non-smoker 7. Return to ER with any new issues or concerns 8. Will need follow up with neurology in 8-12 weeks. I will sign off for now. Thank you for the opportunity to participate in her care. Please do not hesitate to call with any new issues or concerns.
[2019-02-14 11:16] VITALS: BP 139/72
--- NOTE | 2019-02-14 23:24 | DS ---
CC: Dr. Thien Gallagher; Dr. Papo Quinteros DISCHARGE SUMMARY: DATE OF ADMISSION: 02/13/19 DATE OF DISCHARGE: 02/14/19 PRIMARY CARE PROVIDER: Dr. Thien Gallagher. NEUROLOGIST: Dr. Papo Quinteros. FINAL DISCHARGE DIAGNOSES: 1. Hypertensive encephalopathy due to hypertensive emergency. 2. Hypertensive emergency. 3. Diabetes mellitus. 4. Hyperlipidemia. HOSPITAL COURSE: The patient presented to [facility]. The patient manifested with confusion and garbled speech, was noted to dorsey ve a blood pressure systolically into the 240 and was associated with a headache. She was transferre d to our facility. She was admitted to the intensive care unit and was started on nicardipine drip wi th a close and tight monitoring of her blood pressure. She did have MRI of the brain on 02/12/19 at our facility, which shows some restricted diffusion with increased signal suggestive of possible isch emic lesion versus some demyelinating process with a broad differential included, but was noted limit ed to, Lyme disease, inflammatory disease, vasculitis, and sarcoidosis. Neurology consultation was o btained and over the phone recommended CTA of the head and neck, which was done and no aneurysm was n oted, no intracranial circulatory lesion, no aneurysm or occlusion. The patient was maintained in th e intensive care unit, and on following day, she was started on her home medications, which included hydrochlorothiazide 25 and metoprolol 50 with p.r.n. hydralazine, and around 2 in the afternoon, I ad ded amlodipine 5 mg. Neurology did come and see the patient and ordered B12 which was 258, slightly low; normal thyroid function; folic acid normal; but her lipid panel was quite significantly elevated with triglyceride 272, total cholesterol 250, and LDL 153. I increased her atorvastatin to 20 mg fr om 10. Serology had a Lyme titer which was negative. Troponins were unremarkable. Sed rate was nor mal, the CRP was minimally elevated at 8, and her A1c was 7.0. In the record, we proceeded with an e chocardiogram, unfortunately could not be accommodated today, and I discussed with Dr. Quinteros, who agre ed that it should be done, but it can be done as an outpatient and arrangement to follow up in his of [facility] and primary care as an outpatient with a request hopefully to have the echocardiogram done after their followup. This morning, her vitals were significant for blood pressure intimally at 7:00 In t he morning was 157/72, she was given her blood pressure medication hydrochlorothiazide, metoprolol 50 , and I increased her amlodipine to 10 mg, and by 11:30, blood pressure was 139/72. At this time, wi th complete resolution of her symptoms, negative workup in term of CTA head and neck, MRI brain, I de emed the patient is stable to be discharged home in stable condition with close followup with her joan rologist, Dr. Quinteros, and her primary care provider. PHYSICAL EXAMINATION: Vital Signs: Temperature 98.1, pulse 78, respiratory rate 18, satting 98, blo od pressure 139/72. General: She is awake, alert, oriented. Head and Neck: Normocephalic, atrauma tic. Supple. Lungs: Clear to auscultation bilaterally. Cardiovascular: S1, S2 regular rate and r hythm. Abdomen: Positive bowel sounds. Soft, nontender, nondistended. Extremities: No pedal kelly a. No motor or focal sensory deficit. DIAGNOSTIC STUDIES/LAB DATA: CBC unremarkable with sed rate 15. Chemistry unremarkable with the exc eption of A1c 7.0, total cholesterol 250, LDL 153, TSH 1.7, free T4 of 0.82, and vitamin B12 of 258, low normal. MRI of the brain 02/12/19, some chronic white matter disease suggestive of ischemic lesion versus dem yelinating lesion. Discussed with Neurology. No acute finding, suggests if they were probably from hypertensive changes. CTA head and neck shows no aneurysm, no occlusion. A 2D echo ordered for inpatient, unable to accommodate it today. Discussed with Neurology. She need s to follow up in outpatient and appointment was made for her to follow up with her primary and Dr. Maycol richey. DISCHARGE MEDICATIONS: 1. Amlodipine 10 mg daily, new prescription. 2. Aspirin 81 daily. 3. Atorvastatin 20 mg daily, new prescription. 4. Plavix 75 mg daily, new prescription. To remain on aspirin and Plavix for 30 days, and then aspi rin alone. 5. Metformin 500 twice a day. 6. Metoprolol with hydrochlorothiazide 50/25 daily. She was instructed to discontinue her lovastatin and start utilizing the atorvastatin. DISCHARGE RECOMMENDATIONS: 1. Follow up with Dr. Papo Quinteros in 1 to 2 weeks for Neurology. 2. Follow up with primary care, Dr. Thien Gallagher, in 1 to 2 weeks. Message to primary to please arrange for outpatient echocardiogram to rule out any valvular disease a nd with bubble study to rule out any PFO. DISCHARGE CONDITION: Stable. DISCHARGE DISPOSITION: Home. [id number]/[facility] #: [id number]
[2019-02-16 14:33] LABS: Complement C3 134 mg/dL (75 - 175)
== END 2019-02-14 15:34 | disposition home or self-care (01) | DRG 78 ==
LOC: ED 20:54 → ICU 02-13 00:06 → MEDTELE 02-13 18:39
PROVIDERS: ADMIT Student in an Organized Health Care Education/Training Program; ATTEND Internal Medicine
DX: I67.4 Hypertensive encephalopathy (principal); I16.1 Hypertensive emergency; I10 Essential (primary) hypertension; E11.9 Type 2 diabetes mellitus without complications; E78.5 Hyperlipidemia, unspecified; F41.9 Anxiety disorder, unspecified; R51 Headache; Z79.01 Long term (current) use of anticoagulants; Z79.899 Other long term (current) drug therapy; Z79.84 Long term (current) use of oral hypoglycemic drugs; Z82.3 Family history of stroke; Z82.49 Family history of ischemic heart disease and other diseases of the circulatory system
CPT/HCPCS: 36415; 70496; 70498; 70551; 80053; 80061; 82164; 82607; 82746; 83036; 83090; 83516; 83735; 84439; 84443; 84484; 85027; 85652; 86038; 86140; 86160; 86618; 87641; 90686; 96374; 96375; 99283; A9270-GY; J0360; J1200; J1644; J2920; Q9967